=== PATIENT | male | born 1945 | race Caucasian/White ===

== ENCOUNTER 2016-08-13 16:20 | Inpatient (IN) | payer MEDICARE, OTHER ==
[~2016-08-13] VITALS: Ht 190.5 cm; Wt 112.0 kg
[2016-08-13 16:50] VITALS: BP 131/83
[2016-08-13] MEDS ORDERED: DOCUSATE SODIUM 283 MG/5 ML MINI-ENEMA PR PRN (17:15)
[2016-08-13] MEDS ORDERED: ACETAMINOPHEN 325 MG TABLET PO PRN (17:15)
[2016-08-13] MEDS ORDERED: INSULIN ASPART 100 UNITS/ML SQ PRN (17:15)
[2016-08-13] MEDS ORDERED: DEXTROSE 50%-WATER 25 GM/50 ML SYRINGE IVP PRN (17:15)
[2016-08-13] MEDS ORDERED: TEMAZEPAM 15 MG CAPSULE PO PRN (17:15)
[2016-08-13] MEDS ORDERED: OxyCODONE HCL 5 MG IR TABLET PO PRN (17:15)
[2016-08-13 18:30] LABS: APPEARANCE,URINE CLEAR (CLEAR); GLUCOSE, URINE (UA) NEGATIVE (NEGATIVE); KETONES,URINE NEGATIVE (NEGATIVE); LEUKOCYTE ESTERASE ,URINE NEGATIVE (NEGATIVE); OCCULT BLOOD,URINE TRACE (NEGATIVE); PH,URINE 5.5 (5.0-8.0); PROTEIN,URINE SEE CONFIRM (NEGATIVE)
[2016-08-13] MEDS: FERROUS SULFATE 325 MG EC TABLET PO SCH (18:30)
[2016-08-13 18:38] LABS: SQUAMOUS EPITHELIAL CELL,UR Rare /LPF (None Seen); SULFOSALICYLIC ACID,URINE 2+ (Negative); WBC,URINE 0-2 /HPF (0-5)
[2016-08-13 20:32] LABS: GLUCOSE,POINT OF CARE 94 MG/DL (70-110)
[2016-08-13] MEDS: BUDESONIDE/FORMOTEROL FUMARATE 160-4.5 MCG/PUFF 6.9 GM INHALER IH SCH (20:48)
[2016-08-13] MEDS: DOCUSATE SODIUM 100 MG CAPSULE PO SCH (20:48)
[2016-08-13] MEDS: ASCORBIC ACID 500 MG TABLET PO SCH (20:49)
[2016-08-13] MEDS ORDERED: ENOXAPARIN SODIUM 40 MG/0.4 ML PF SYRINGE SQ SCH (21:00)
[2016-08-13] MEDS ORDERED: DIAZEPAM 5 MG TABLET PO SCH (21:00)
[2016-08-13] MEDS ORDERED: SENNA 187 MG TABLET PO SCH (21:00)
[2016-08-13 21:12] LABS: GLUCOSE,POINT OF CARE 101 MG/DL (70-110)
[2016-08-13] MEDS ORDERED: DIAZEPAM 5 MG TABLET PO PRN (23:30)
[2016-08-13] MEDS: ACETAMINOPHEN 325 MG TABLET PO SCH (23:39)
[2016-08-13] MEDS: TraMADol HCL 50 MG TABLET PO SCH (23:39)
[2016-08-14] VITALS: BP 141/77
[2016-08-14] MEDS: ALBUTEROL SULFATE 2.5 MG/0.5 ML NEB SOLUTION NEB PRN ×2 (00:51→16:55)
[2016-08-14] MEDS: IPRATROPIUM BROMIDE 0.5 MG/2.5 ML NEB SOLUTION NEB PRN ×2 (00:51→16:55)
[2016-08-14] MEDS: ACETAMINOPHEN 325 MG TABLET PO SCH ×3 (05:43→17:07)
[2016-08-14 06:52] LABS: EOSINOPHILS % (AUTO) 2.3 % (1.0-6.0); HEMATOCRIT 27.1 % (41-53); HEMOGLOBIN 9.4 g/dL (13.5-17.5); LYMPHOCYTES % (AUTO) 24.8 % (22.0-44.0); MEAN CORPUSCULAR HEMOGLOBIN 29.9 pg (26.0-34.0); MEAN CORPUSCULAR HGB CONC 34.6 G/dL (31.0-37.0); MEAN CORPUSCULAR VOLUME 86 fL (80-100); MONOCYTES # (AUTO) 0.3 K/uL (0.1-1.0); MONOCYTES % (AUTO) 4.2 % (2.0-9.0); NEUTROPHILS # (AUTO) 5.5 K/uL (1.8-7.7); NEUTROPHILS % (AUTO) 68.7 % (40.0-70.0); PLATELET COUNT (AUTO) 176 K/uL (150-450); RED BLOOD CELL COUNT(AUTO) 3.14 MIL/uL (4.50-5.90); RED CELL DISTRIBUTION WIDTH 21.2 % (11.5-14.5); WHITE BLOOD COUNT (AUTO) 8.1 K/uL (4.5-11.0)
[2016-08-14 07:11] LABS: ALBUMIN 2.3 g/dL (3.4-5.0); BILIRUBIN,TOTAL 0.4 mg/dL (0.1-1.0); CALCIUM, TOTAL 8.1 mg/dL (8.8-10.5); CREATININE 1.91 mg/dL (0.60-1.30); POTASSIUM 4.8 mmol/L (3.5-5.1); TOTAL PROTEIN, SERUM 6.8 g/dL (6.4-8.2)
[2016-08-14] MEDS: MetFORMIN HCL 500 MG TABLET PO SCH ×2 (08:17→16:50)
[2016-08-14] MEDS: FERROUS SULFATE 325 MG EC TABLET PO SCH ×2 (08:17→16:50)
[2016-08-14] MEDS: TraMADol HCL 50 MG TABLET PO SCH ×2 (08:17→16:00)
[2016-08-14 08:24] VITALS: BP 138/81
[2016-08-14] MEDS ORDERED: POLYETHYLENE GLYCOL 3350 17 GM PACKET PO SCH (09:00)
[2016-08-14] MEDS ORDERED: RANITIDINE HCL 150 MG TABLET PO SCH (09:00)
[2016-08-14] MEDS ORDERED: MAGNESIUM OXIDE 400 MG TABLET PO SCH (09:00)
[2016-08-14] MEDS ORDERED: TIOTROPIUM BROMIDE 18 MCG/INH HANDIHALER [5] IH SCH (09:00)
[2016-08-14] MEDS ORDERED: AmLODIPine BESYLATE 5 MG TABLET PO SCH (09:00)
[2016-08-14] MEDS ORDERED: METOPROLOL SUCCINATE 50 MG ER TABLET PO SCH (09:00)
[2016-08-14 09:19] LABS: RBC MORPHOLOGY COMMENT ABNORMAL RBC MORPH
[2016-08-14] MEDS: ASCORBIC ACID 500 MG TABLET PO SCH ×2 (09:27→16:50)
[2016-08-14] MEDS: DOCUSATE SODIUM 100 MG CAPSULE PO SCH (09:27)
[2016-08-14] MEDS: BUDESONIDE/FORMOTEROL FUMARATE 160-4.5 MCG/PUFF 6.9 GM INHALER IH SCH (09:28)
[2016-08-14] MEDS: OxyCODONE HCL 5 MG IR TABLET PO PRN ×2 (09:37→13:13)
[2016-08-14 12:37] LABS: GLUCOSE,POINT OF CARE 111 MG/DL (70-110)
[2016-08-14 15:35] VITALS: BP 129/75
[2016-08-14 16:10] VITALS: BP 143/83
[2016-08-14] MEDS ORDERED: FUROSEMIDE 40 MG/4 ML VIAL IVP ONE (16:45)
[2016-08-14 16:50] LABS: ABG A-A DIFF O2 208.2 mmHg (10-20.0); ABG BASE EXCESS -5.7 mmol/L (-2.0-3.0); ABG HCO3 19.5 mmol/L (22.0-26.0); ABG OXYHEMOGLOBIN 81.5 % (94.0-100.0); ABG PCO2 50 mmHg (35-45); ABG PH 7.251 (7.35-7.450); ALLEN TEST, BLOOD GAS Positive; TEMPERATURE, FAHRENHEIT, BG 98.6 FAHREN (96.0-98.6)
[2016-08-14 17:17] LABS: GLUCOSE,POINT OF CARE 125 MG/DL (70-110)
[2016-08-14 17:17] LABS: GLUCOSE,POINT OF CARE 83 MG/DL (70-110)
[2016-08-14] MEDS ORDERED: MethylPREDNISolone SOD SUCC 125 MG/2 ML VIAL IVP SCH (18:30)
[2016-08-14] MEDS ORDERED: IPRATROPIUM BROMIDE 0.5 MG/2.5 ML NEB SOLUTION NEB SCH (19:00)
[2016-08-14] MEDS ORDERED: ALBUTEROL SULFATE 2.5 MG/0.5 ML NEB SOLUTION NEB SCH (19:00)
[2016-08-14] MEDS ORDERED: PIPERACILLIN/TAZO 3.375 GM/D5W 50 ML IV SCH (19:00)
[2016-08-14 19:41] LABS: ABG A-A DIFF O2 203.7 mmHg (10-20.0); ABG BASE EXCESS -6.1 mmol/L (-2.0-3.0); ABG HCO3 19.8 mmol/L (22.0-26.0); ABG PCO2 38 mmHg (35-45); ABG PH 7.332 (7.35-7.450); ALLEN TEST, BLOOD GAS Positive; IPAP, BG 14 cm H2O; TEMPERATURE, FAHRENHEIT, BG 97.8 FAHREN (96.0-98.6)
[2016-08-14] MEDS ORDERED: FUROSEMIDE 40 MG/4 ML VIAL IVP SCH (21:00)
[2016-08-14] MEDS ORDERED: ATORVASTATIN CALCIUM 40 MG TABLET PO SCH (21:00)
[2016-08-18] MEDS ORDERED: ERGOCALCIFEROL (VIT D2) 50,000 UNITS CAPSULE PO SCH (09:00)
[2016-08-21] MEDS ORDERED: IPRNEB IH ×2 (15:02→15:16)
[2016-08-21] MEDS ORDERED: DOCU283E RC (15:13)
== END 2016-08-14 19:18 | disposition short-term general hospital (02) | DRG 552 ==
LOC: 2WR 16:20
PROVIDERS: ADMIT Physical Medicine & Rehabilitation
DX: M48.00 Spinal stenosis, site unspecified (principal); I13.0 Hypertensive heart and chronic kidney disease with heart failure and stage 1 through stage 4 chronic kidney disease, or unspecified chronic kidney disease; I27.2 Other secondary pulmonary hypertension; I48.91 Unspecified atrial fibrillation; J44.9 Chronic obstructive pulmonary disease, unspecified; Z82.49 Family history of ischemic heart disease and other diseases of the circulatory system; Z83.3 Family history of diabetes mellitus; E11.22 Type 2 diabetes mellitus with diabetic chronic kidney disease; N18.9 Chronic kidney disease, unspecified; I50.9 Heart failure, unspecified; M47.9 Spondylosis, unspecified; Z87.01 Personal history of pneumonia (recurrent)
CPT/HCPCS: 82805; 82962; 84145; 87081; 94640; 94660; 94799; 97112; 97163; 97167; 97530; 97535; J1650; J1940; J2543; J2930

== ENCOUNTER 2016-08-14 19:30 | Inpatient (IN) | payer MEDICARE, OTHER ==
[2016-08-14 19:30] VITALS: BP 118/64
[2016-08-15] VITALS (7 sets, daily range): BP systolic 121–137; BP diastolic 63–86
[2016-08-15] MEDS ORDERED: IPRATROPIUM BROMIDE 0.5 MG/2.5 ML NEB SOLUTION NEB PRN (00:30)
[2016-08-15] MEDS ORDERED: ALBUTEROL SULFATE 2.5 MG/0.5 ML NEB SOLUTION NEB PRN (00:30)
[2016-08-15] MEDS ORDERED: DEXTROSE 50%-WATER 25 GM/50 ML SYRINGE IVP PRN ×2 (00:30→14:00)
[2016-08-15] MEDS ORDERED: DOCUSATE SODIUM 283 MG/5 ML MINI-ENEMA PR PRN (00:30)
[2016-08-15] MEDS ORDERED: OxyCODONE HCL 5 MG IR TABLET PO PRN ×2 (00:30)
[2016-08-15] MEDS ORDERED: TEMAZEPAM 15 MG CAPSULE PO PRN (00:30)
[2016-08-15] MEDS ORDERED: DIAZEPAM 5 MG TABLET PO PRN (00:30)
[2016-08-15] MEDS: MethylPREDNISolone SOD SUCC 125 MG/2 ML VIAL IVP SCH ×5 (01:13→23:10)
[2016-08-15] MEDS: PIPERACILLIN/TAZO 3.375 GM/D5W 50 ML IV SCH ×5 (01:14→23:11)
[2016-08-15] MEDS: ACETAMINOPHEN 325 MG TABLET PO SCH ×4 (01:14→18:11)
[2016-08-15 07:12] LABS: GLUCOSE,POINT OF CARE 112 MG/DL (70-110)
[2016-08-15] MEDS: ALBUTEROL SULFATE 2.5 MG/0.5 ML NEB SOLUTION NEB SCH ×5 (07:28→23:00)
[2016-08-15] MEDS: IPRATROPIUM BROMIDE 0.5 MG/2.5 ML NEB SOLUTION NEB SCH ×5 (07:28→23:00)
[2016-08-15] MEDS ORDERED: MetFORMIN HCL 500 MG TABLET PO SCH (08:00)
[2016-08-15] MEDS: TraMADol HCL 50 MG TABLET PO SCH ×3 (08:44→23:08)
[2016-08-15] MEDS: FUROSEMIDE 40 MG/4 ML VIAL IVP SCH ×2 (08:44→22:25)
[2016-08-15] MEDS: DOCUSATE SODIUM 100 MG CAPSULE PO SCH ×2 (08:44→22:24)
[2016-08-15] MEDS: TIOTROPIUM BROMIDE 18 MCG/INH HANDIHALER [5] IH SCH (08:45)
[2016-08-15] MEDS: RANITIDINE HCL 150 MG TABLET PO SCH (08:45)
[2016-08-15] MEDS: POLYETHYLENE GLYCOL 3350 17 GM PACKET PO SCH (08:45)
[2016-08-15] MEDS: FERROUS SULFATE 325 MG EC TABLET PO SCH ×2 (08:45→18:12)
[2016-08-15] MEDS: BUDESONIDE/FORMOTEROL FUMARATE 160-4.5 MCG/PUFF 6.9 GM INHALER IH SCH ×2 (08:45→22:24)
[2016-08-15] MEDS: AmLODIPine BESYLATE 5 MG TABLET PO SCH (08:45)
[2016-08-15] MEDS: MAGNESIUM OXIDE 400 MG TABLET PO SCH (08:45)
[2016-08-15 10:57] LABS: GLUCOSE,POINT OF CARE 102 MG/DL (70-110)
[2016-08-15] MEDS: ASCORBIC ACID 500 MG TABLET PO SCH ×3 (12:19→22:18)
[2016-08-15] MEDS: METOPROLOL SUCCINATE 50 MG ER TABLET PO SCH (12:19)
[2016-08-15 17:06] LABS: CALCIUM, TOTAL 8.4 mg/dL (8.8-10.5); CREATININE 2.56 mg/dL (0.60-1.30); POTASSIUM 5.5 mmol/L (3.5-5.1)
[2016-08-15 17:25] LABS: ABG A-A DIFF O2 156.1 mmHg (10-20.0); ABG BASE EXCESS -8.5 mmol/L (-2.0-3.0); ABG HCO3 18.3 mmol/L (22.0-26.0); ABG OXYHEMOGLOBIN 92.4 % (94.0-100.0); ABG PCO2 28 mmHg (35-45); ABG PH 7.384 (7.35-7.450); ALLEN TEST, BLOOD GAS Positive; TEMPERATURE, FAHRENHEIT, BG 98.6 FAHREN (96.0-98.6)
[2016-08-15 17:42] LABS: GLUCOSE,POINT OF CARE 234 MG/DL (70-110)
[2016-08-15 18:14] LABS: PROCALCITONIN (PCT) 8.12 ng/mL (<0.50)
[2016-08-15] MEDS: INSULIN ASPART 100 UNITS/ML SQ PRN ×2 (18:18→22:23)
[2016-08-15 19:47] LABS: GLUCOSE,POINT OF CARE 288 MG/DL (70-110)
[2016-08-15 20:08] LABS: EOSINOPHILS % (AUTO) 0 % (1.0-6.0); HEMATOCRIT 28.6 % (41-53); HEMOGLOBIN 9.8 g/dL (13.5-17.5); LYMPHOCYTES # (AUTO) 0.9 K/uL (1.0-4.8); LYMPHOCYTES % (AUTO) 8.9 % (22.0-44.0); MEAN CORPUSCULAR HEMOGLOBIN 29.6 pg (26.0-34.0); MEAN CORPUSCULAR HGB CONC 34.2 G/dL (31.0-37.0); MEAN CORPUSCULAR VOLUME 87 fL (80-100); MONOCYTES # (AUTO) 0.3 K/uL (0.1-1.0); MONOCYTES % (AUTO) 2.6 % (2.0-9.0); PLATELET COUNT (AUTO) 241 K/uL (150-450); RED BLOOD CELL COUNT(AUTO) 3.31 MIL/uL (4.50-5.90); RED CELL DISTRIBUTION WIDTH 21.2 % (11.5-14.5); WHITE BLOOD COUNT (AUTO) 10.1 K/uL (4.5-11.0)
[2016-08-15 20:17] LABS: NEUTROPHILS % (AUTO) 88.5 % (40.0-70.0)
[2016-08-15 20:38] LABS: RBC MORPHOLOGY COMMENT ABNORMAL RBC MORPH
[2016-08-15] MEDS: ENOXAPARIN SODIUM 40 MG/0.4 ML PF SYRINGE SQ SCH (22:24)
[2016-08-15] MEDS: SENNA 187 MG TABLET PO SCH (22:24)
[2016-08-15] MEDS: DIAZEPAM 5 MG TABLET PO SCH (22:24)
[2016-08-15] MEDS: ATORVASTATIN CALCIUM 40 MG TABLET PO SCH (22:37)
[2016-08-16] MEDS: ACETAMINOPHEN 325 MG TABLET PO SCH ×4 (01:22→18:46)
[2016-08-16 03:36] LABS: GLUCOSE COMMENT 1 Received Meds; GLUCOSE,POINT OF CARE 252 MG/DL (70-110)
[2016-08-16 05:05] VITALS: BP 134/76
[2016-08-16 06:14] VITALS: BP 115/78
[2016-08-16] MEDS: INSULIN ASPART 100 UNITS/ML SQ PRN ×4 (06:25→20:37)
[2016-08-16] MEDS: PIPERACILLIN/TAZO 3.375 GM/D5W 50 ML IV SCH (06:28)
[2016-08-16] MEDS: MethylPREDNISolone SOD SUCC 125 MG/2 ML VIAL IVP SCH ×3 (06:28→17:18)
[2016-08-16 06:56] LABS: GLUCOSE COMMENT 1 Received Meds; GLUCOSE,POINT OF CARE 174 MG/DL (70-110)
[2016-08-16] MEDS: ALBUTEROL SULFATE 2.5 MG/0.5 ML NEB SOLUTION NEB SCH ×5 (07:00→22:54)
[2016-08-16] MEDS: IPRATROPIUM BROMIDE 0.5 MG/2.5 ML NEB SOLUTION NEB SCH ×5 (07:00→22:54)
[2016-08-16 07:36] VITALS: BP 123/73
[2016-08-16] MEDS: FERROUS SULFATE 325 MG EC TABLET PO SCH ×2 (08:24→17:49)
[2016-08-16] MEDS: TraMADol HCL 50 MG TABLET PO SCH ×2 (08:27→16:32)
[2016-08-16] MEDS: TIOTROPIUM BROMIDE 18 MCG/INH HANDIHALER [5] IH SCH (08:27)
[2016-08-16] MEDS: BUDESONIDE/FORMOTEROL FUMARATE 160-4.5 MCG/PUFF 6.9 GM INHALER IH SCH ×2 (08:27→20:12)
[2016-08-16] MEDS: FUROSEMIDE 40 MG/4 ML VIAL IVP SCH ×2 (08:27→20:11)
[2016-08-16] MEDS: ASCORBIC ACID 500 MG TABLET PO SCH ×3 (08:28→20:12)
[2016-08-16] MEDS: POLYETHYLENE GLYCOL 3350 17 GM PACKET PO SCH (08:28)
[2016-08-16] MEDS: RANITIDINE HCL 150 MG TABLET PO SCH (08:28)
[2016-08-16] MEDS: MAGNESIUM OXIDE 400 MG TABLET PO SCH (08:28)
[2016-08-16] MEDS: AmLODIPine BESYLATE 5 MG TABLET PO SCH (08:28)
[2016-08-16] MEDS: DOCUSATE SODIUM 100 MG CAPSULE PO SCH ×2 (08:28→20:12)
[2016-08-16] MEDS: METOPROLOL SUCCINATE 50 MG ER TABLET PO SCH (08:28)
[2016-08-16 09:13] LABS: BASOPHILS # (AUTO) 0.01 K/uL (0.00-0.20); BASOPHILS % (AUTO) 0.2 % (0.0-2.0); EOSINOPHILS % (AUTO) 0.03 % (1.0-6.0); HEMATOCRIT 27.4 % (41-53); HEMOGLOBIN 8.9 g/dL (13.5-17.5); LYMPHOCYTES # (AUTO) 0.9 K/uL (1.0-4.8); LYMPHOCYTES % (AUTO) 9.9 % (22.0-44.0); MEAN CORPUSCULAR HEMOGLOBIN 28.8 pg (26.0-34.0); MEAN CORPUSCULAR HGB CONC 32.5 G/dL (31.0-37.0); MEAN CORPUSCULAR VOLUME 88 fL (80-100); MONOCYTES # (AUTO) 0.5 K/uL (0.1-1.0); MONOCYTES % (AUTO) 5.3 % (2.0-9.0); NEUTROPHILS # (AUTO) 7.8 K/uL (1.8-7.7); NEUTROPHILS % (AUTO) 84.7 % (40.0-70.0); PLATELET COUNT (AUTO) 258 K/uL (150-450); RED CELL DISTRIBUTION WIDTH 21.2 % (11.5-14.5); WHITE BLOOD COUNT (AUTO) 9.2 K/uL (4.5-11.0)
[2016-08-16 09:28] LABS: CALCIUM, TOTAL 8.7 mg/dL (8.8-10.5); CREATININE 2.75 mg/dL (0.60-1.30); POTASSIUM 4.9 mmol/L (3.5-5.1)
[2016-08-16 09:32] LABS: ALBUMIN 2.2 g/dL (3.4-5.0); BILIRUBIN,TOTAL 0.5 mg/dL (0.1-1.0); TOTAL PROTEIN, SERUM 7.6 g/dL (6.4-8.2)
[2016-08-16 09:37] LABS: RBC MORPHOLOGY COMMENT ABNORMAL RBC MORPH
[2016-08-16 11:42] VITALS: BP 140/79
[2016-08-16] MEDS: PIPERACILLIN SODIUM/TAZOBACTAM 2.25 GM in DEXTROSE 5%-WATER 50 ML IV SCH ×2 (11:52→17:17)
[2016-08-16 12:12] LABS: GLUCOSE COMMENT 1 Received Meds; GLUCOSE,POINT OF CARE 234 MG/DL (70-110)
[2016-08-16 16:15] VITALS: BP 138/81
[2016-08-16 19:21] LABS: GLUCOSE COMMENT 1 Received Meds; GLUCOSE,POINT OF CARE 220 MG/DL (70-110)
[2016-08-16 20:05] VITALS: BP 149/90
[2016-08-16] MEDS: ENOXAPARIN SODIUM 40 MG/0.4 ML PF SYRINGE SQ SCH (20:11)
[2016-08-16] MEDS: SENNA 187 MG TABLET PO SCH (20:12)
[2016-08-16] MEDS: ATORVASTATIN CALCIUM 40 MG TABLET PO SCH (20:12)
[2016-08-16] MEDS: DIAZEPAM 5 MG TABLET PO SCH (20:12)
[2016-08-17 00:05] VITALS: BP 150/78
[2016-08-17] MEDS ORDERED: SODIUM CHLORIDE 0.9% 100 ML ONE ×2 (00:07→11:54)
[2016-08-17] MEDS: PIPERACILLIN SODIUM/TAZOBACTAM 2.25 GM in DEXTROSE 5%-WATER 50 ML IV SCH ×4 (00:36→17:36)
[2016-08-17] MEDS: MethylPREDNISolone SOD SUCC 125 MG/2 ML VIAL IVP SCH ×4 (00:36→17:36)
[2016-08-17] MEDS: TraMADol HCL 50 MG TABLET PO SCH ×3 (00:36→17:02)
[2016-08-17 02:22] LABS: GLUCOSE COMMENT 1 Received Meds; GLUCOSE,POINT OF CARE 194 MG/DL (70-110)
[2016-08-17 04:26] VITALS: BP 133/94
[2016-08-17] MEDS: ACETAMINOPHEN 325 MG TABLET PO SCH ×4 (06:04→18:03)
[2016-08-17 06:26] LABS: BASOPHILS % (AUTO) 0.1 % (0.0-2.0); EOSINOPHILS % (AUTO) 0 % (1.0-6.0); HEMATOCRIT 26.3 % (41-53); HEMOGLOBIN 8.9 g/dL (13.5-17.5); LYMPHOCYTES # (AUTO) 0.6 K/uL (1.0-4.8); LYMPHOCYTES % (AUTO) 8.1 % (22.0-44.0); MEAN CORPUSCULAR HEMOGLOBIN 29.8 pg (26.0-34.0); MEAN CORPUSCULAR HGB CONC 33.7 G/dL (31.0-37.0); MEAN CORPUSCULAR VOLUME 88 fL (80-100); MONOCYTES # (AUTO) 0.4 K/uL (0.1-1.0); MONOCYTES % (AUTO) 5.7 % (2.0-9.0); NEUTROPHILS # (AUTO) 6.5 K/uL (1.8-7.7); PLATELET COUNT (AUTO) 254 K/uL (150-450); RED BLOOD CELL COUNT(AUTO) 2.98 MIL/uL (4.50-5.90); RED CELL DISTRIBUTION WIDTH 21.4 % (11.5-14.5); WHITE BLOOD COUNT (AUTO) 7.6 K/uL (4.5-11.0)
[2016-08-17 06:43] LABS: ALBUMIN 2.2 g/dL (3.4-5.0); BILIRUBIN,TOTAL 0.4 mg/dL (0.1-1.0); CALCIUM, TOTAL 8.5 mg/dL (8.8-10.5); CREATININE 2.61 mg/dL (0.60-1.30); POTASSIUM 3.9 mmol/L (3.5-5.1); TOTAL PROTEIN, SERUM 7.4 g/dL (6.4-8.2)
[2016-08-17 06:49] LABS: NEUTROPHILS % (AUTO) 86.1 % (40.0-70.0)
[2016-08-17] MEDS: INSULIN ASPART 100 UNITS/ML SQ PRN ×4 (06:52→20:42)
[2016-08-17] MEDS: IPRATROPIUM BROMIDE 0.5 MG/2.5 ML NEB SOLUTION NEB SCH ×5 (07:00→22:53)
[2016-08-17] MEDS: ALBUTEROL SULFATE 2.5 MG/0.5 ML NEB SOLUTION NEB SCH ×5 (07:00→22:53)
[2016-08-17 07:19] VITALS: BP 143/70
[2016-08-17] MEDS: FUROSEMIDE 40 MG/4 ML VIAL IVP SCH ×2 (08:21→20:27)
[2016-08-17] MEDS: RANITIDINE HCL 150 MG TABLET PO SCH (08:22)
[2016-08-17] MEDS: TIOTROPIUM BROMIDE 18 MCG/INH HANDIHALER [5] IH SCH (08:22)
[2016-08-17] MEDS: POLYETHYLENE GLYCOL 3350 17 GM PACKET PO SCH (08:22)
[2016-08-17] MEDS: DOCUSATE SODIUM 100 MG CAPSULE PO SCH ×2 (08:22→20:27)
[2016-08-17] MEDS: MAGNESIUM OXIDE 400 MG TABLET PO SCH (08:22)
[2016-08-17] MEDS: ASCORBIC ACID 500 MG TABLET PO SCH ×3 (08:22→20:27)
[2016-08-17] MEDS: METOPROLOL SUCCINATE 50 MG ER TABLET PO SCH (08:22)
[2016-08-17] MEDS: FERROUS SULFATE 325 MG EC TABLET PO SCH ×2 (08:22→17:37)
[2016-08-17] MEDS: AmLODIPine BESYLATE 5 MG TABLET PO SCH (08:22)
[2016-08-17] MEDS: BUDESONIDE/FORMOTEROL FUMARATE 160-4.5 MCG/PUFF 6.9 GM INHALER IH SCH ×2 (08:23→20:28)
[2016-08-17 11:03] VITALS: BP 142/79
[2016-08-17] MEDS ORDERED: POTASSIUM CHLORIDE 20 MEQ ER TABLET PO ONE (12:15)
[2016-08-17 12:37] LABS: MAGNESIUM 2.4 mg/dL (1.80-2.40); PHOSPHORUS 4.4 mg/dL (2.5-4.9)
[2016-08-17 15:17] VITALS: BP 123/75
[2016-08-17 19:53] VITALS: BP 132/79
[2016-08-17 20:01] LABS: GLUCOSE,POINT OF CARE 285 MG/DL (70-110)
[2016-08-17] MEDS: DIAZEPAM 5 MG TABLET PO SCH (20:27)
[2016-08-17] MEDS: SENNA 187 MG TABLET PO SCH (20:27)
[2016-08-17] MEDS: ENOXAPARIN SODIUM 40 MG/0.4 ML PF SYRINGE SQ SCH (20:27)
[2016-08-17] MEDS: ATORVASTATIN CALCIUM 40 MG TABLET PO SCH (20:27)
[2016-08-18] VITALS: BP 155/63
[2016-08-18] MEDS ORDERED: SODIUM CHLORIDE 0.9% 100 ML ONE ×2 (00:01→09:58)
[2016-08-18] MEDS: PIPERACILLIN SODIUM/TAZOBACTAM 2.25 GM in DEXTROSE 5%-WATER 50 ML IV SCH ×4 (00:17→17:29)
[2016-08-18] MEDS: TraMADol HCL 50 MG TABLET PO SCH ×3 (00:18→17:28)
[2016-08-18] MEDS: MethylPREDNISolone SOD SUCC 125 MG/2 ML VIAL IVP SCH ×3 (00:18→11:52)
[2016-08-18 04:00] VITALS: BP 123/70
[2016-08-18] MEDS: ACETAMINOPHEN 325 MG TABLET PO SCH ×4 (06:06→17:29)
[2016-08-18] MEDS: INSULIN ASPART 100 UNITS/ML SQ PRN ×4 (06:19→21:10)
[2016-08-18 06:31] LABS: EOSINOPHILS % (AUTO) 0 % (1.0-6.0); HEMATOCRIT 25.6 % (41-53); LYMPHOCYTES # (AUTO) 0.6 K/uL (1.0-4.8); LYMPHOCYTES % (AUTO) 9.1 % (22.0-44.0); MEAN CORPUSCULAR HEMOGLOBIN 29.7 pg (26.0-34.0); MEAN CORPUSCULAR VOLUME 85 fL (80-100); MONOCYTES # (AUTO) 0.4 K/uL (0.1-1.0); NEUTROPHILS # (AUTO) 5.7 K/uL (1.8-7.7); NEUTROPHILS % (AUTO) 84.9 % (40.0-70.0); PLATELET COUNT (AUTO) 289 K/uL (150-450); RED BLOOD CELL COUNT(AUTO) 3.02 MIL/uL (4.50-5.90); RED CELL DISTRIBUTION WIDTH 20.7 % (11.5-14.5); WHITE BLOOD COUNT (AUTO) 6.7 K/uL (4.5-11.0)
[2016-08-18 06:51] LABS: RBC MORPHOLOGY COMMENT ABNORMAL RBC MORPH
[2016-08-18 07:00] VITALS: BP 142/69
[2016-08-18 07:01] LABS: ALBUMIN 2.3 g/dL (3.4-5.0); BILIRUBIN,TOTAL 0.3 mg/dL (0.1-1.0); CALCIUM, TOTAL 8.5 mg/dL (8.8-10.5); CREATININE 2.34 mg/dL (0.60-1.30); POTASSIUM 3.7 mmol/L (3.5-5.1); TOTAL PROTEIN, SERUM 7.6 g/dL (6.4-8.2)
[2016-08-18] MEDS: IPRATROPIUM BROMIDE 0.5 MG/2.5 ML NEB SOLUTION NEB SCH ×5 (07:53→23:00)
[2016-08-18] MEDS: ALBUTEROL SULFATE 2.5 MG/0.5 ML NEB SOLUTION NEB SCH ×5 (07:53→23:00)
[2016-08-18] MEDS: DOCUSATE SODIUM 100 MG CAPSULE PO SCH ×2 (09:00→20:29)
[2016-08-18] MEDS ORDERED: ERGOCALCIFEROL (VIT D2) 50,000 UNITS CAPSULE PO SCH (09:00)
[2016-08-18] MEDS: POLYETHYLENE GLYCOL 3350 17 GM PACKET PO SCH (09:00)
[2016-08-18] MEDS: METOPROLOL SUCCINATE 50 MG ER TABLET PO SCH (09:45)
[2016-08-18] MEDS: MAGNESIUM OXIDE 400 MG TABLET PO SCH (09:46)
[2016-08-18] MEDS: AmLODIPine BESYLATE 5 MG TABLET PO SCH (09:46)
[2016-08-18] MEDS: TIOTROPIUM BROMIDE 18 MCG/INH HANDIHALER [5] IH SCH (09:54)
[2016-08-18] MEDS: BUDESONIDE/FORMOTEROL FUMARATE 160-4.5 MCG/PUFF 6.9 GM INHALER IH SCH ×2 (09:54→20:50)
[2016-08-18] MEDS: FERROUS SULFATE 325 MG EC TABLET PO SCH ×2 (09:54→17:29)
[2016-08-18] MEDS: FUROSEMIDE 40 MG/4 ML VIAL IVP SCH ×2 (09:55→20:50)
[2016-08-18] MEDS: RANITIDINE HCL 150 MG TABLET PO SCH (09:55)
[2016-08-18] MEDS: ASCORBIC ACID 500 MG TABLET PO SCH ×3 (09:55→20:49)
[2016-08-18 11:32] VITALS: BP 146/90
[2016-08-18 11:47] LABS: GLUCOSE COMMENT 1 Received Meds; GLUCOSE,POINT OF CARE 224 MG/DL (70-110)
[2016-08-18 11:47] LABS: GLUCOSE COMMENT 1 Received Meds; GLUCOSE,POINT OF CARE 255 MG/DL (70-110)
[2016-08-18 11:52] LABS: GLUCOSE COMMENT 1 Received Meds; GLUCOSE,POINT OF CARE 319 MG/DL (70-110)
[2016-08-18 15:00] VITALS: BP 132/88
[2016-08-18 15:16] LABS: GLUCOSE COMMENT 1 Received Meds; GLUCOSE,POINT OF CARE 288 MG/DL (70-110)
[2016-08-18 15:22] LABS: GLUCOSE COMMENT 1 Received Meds; GLUCOSE,POINT OF CARE 306 MG/DL (70-110)
[2016-08-18] MEDS: MethylPREDNISolone SOD SUCC 40 MG/ML VIAL IVP SCH (17:29)
[2016-08-18] MEDS ORDERED: 0.9% SODIUM CHLORIDE 5 ML NEB SOLUTION NEB ONE (19:11)
[2016-08-18 19:49] VITALS: BP 153/89
[2016-08-18] MEDS: SENNA 187 MG TABLET PO SCH (20:29)
[2016-08-18 20:42] LABS: GLUCOSE COMMENT 1 Received Meds; GLUCOSE,POINT OF CARE 343 MG/DL (70-110)
[2016-08-18] MEDS: ATORVASTATIN CALCIUM 40 MG TABLET PO SCH (20:49)
[2016-08-18] MEDS: DIAZEPAM 5 MG TABLET PO SCH (20:50)
[2016-08-18] MEDS: ENOXAPARIN SODIUM 40 MG/0.4 ML PF SYRINGE SQ SCH (20:50)
[2016-08-18 23:47] LABS: GLUCOSE COMMENT 1 Received Meds; GLUCOSE,POINT OF CARE 325 MG/DL (70-110)
[2016-08-19 00:07] VITALS: BP 143/81
[2016-08-19] MEDS: MethylPREDNISolone SOD SUCC 40 MG/ML VIAL IVP SCH ×3 (00:10→11:59)
[2016-08-19] MEDS: PIPERACILLIN SODIUM/TAZOBACTAM 2.25 GM in DEXTROSE 5%-WATER 50 ML IV SCH ×4 (00:11→18:01)
[2016-08-19] MEDS: TraMADol HCL 50 MG TABLET PO SCH ×3 (00:11→16:00)
[2016-08-19 04:07] VITALS: BP 153/92
[2016-08-19] MEDS: ACETAMINOPHEN 325 MG TABLET PO SCH ×4 (06:00→18:01)
[2016-08-19 06:13] LABS: COCCIDIOIDES IMMITIS AB IGG <0.150 Abs; COCCIDIOIDES IMMITIS AB IGM <0.150 Abs
[2016-08-19] MEDS: INSULIN ASPART 100 UNITS/ML SQ PRN ×4 (06:16→22:07)
[2016-08-19 06:19] LABS: BASOPHILS # (AUTO) 0.02 K/uL (0.00-0.20); BASOPHILS % (AUTO) 0.2 % (0.0-2.0); EOSINOPHILS % (AUTO) 0.01 % (1.0-6.0); HEMATOCRIT 26.8 % (41-53); HEMOGLOBIN 9.1 g/dL (13.5-17.5); LYMPHOCYTES # (AUTO) 0.7 K/uL (1.0-4.8); LYMPHOCYTES % (AUTO) 10.9 % (22.0-44.0); MEAN CORPUSCULAR HEMOGLOBIN 28.9 pg (26.0-34.0); MEAN CORPUSCULAR VOLUME 85 fL (80-100); MONOCYTES # (AUTO) 0.4 K/uL (0.1-1.0); MONOCYTES % (AUTO) 5.8 % (2.0-9.0); NEUTROPHILS # (AUTO) 5.6 K/uL (1.8-7.7); NEUTROPHILS % (AUTO) 83.2 % (40.0-70.0); PLATELET COUNT (AUTO) 298 K/uL (150-450); RED BLOOD CELL COUNT(AUTO) 3.16 MIL/uL (4.50-5.90); RED CELL DISTRIBUTION WIDTH 21.2 % (11.5-14.5); WHITE BLOOD COUNT (AUTO) 6.7 K/uL (4.5-11.0)
[2016-08-19 06:31] LABS: ALBUMIN 2.3 g/dL (3.4-5.0); BILIRUBIN,TOTAL 0.3 mg/dL (0.1-1.0); CALCIUM, TOTAL 8.3 mg/dL (8.8-10.5); CREATININE 2.14 mg/dL (0.60-1.30); POTASSIUM 3.6 mmol/L (3.5-5.1); TOTAL PROTEIN, SERUM 7.2 g/dL (6.4-8.2)
[2016-08-19] MEDS: IPRATROPIUM BROMIDE 0.5 MG/2.5 ML NEB SOLUTION NEB SCH ×5 (07:09→23:00)
[2016-08-19] MEDS: ALBUTEROL SULFATE 2.5 MG/0.5 ML NEB SOLUTION NEB SCH ×3 (07:09→15:00)
[2016-08-19 07:43] VITALS: BP 154/82
[2016-08-19] MEDS: FERROUS SULFATE 325 MG EC TABLET PO SCH ×2 (08:50→18:05)
[2016-08-19] MEDS: BUDESONIDE/FORMOTEROL FUMARATE 160-4.5 MCG/PUFF 6.9 GM INHALER IH SCH ×2 (08:52→21:59)
[2016-08-19] MEDS: TIOTROPIUM BROMIDE 18 MCG/INH HANDIHALER [5] IH SCH (08:52)
[2016-08-19] MEDS: MAGNESIUM OXIDE 400 MG TABLET PO SCH (08:53)
[2016-08-19] MEDS: FUROSEMIDE 40 MG/4 ML VIAL IVP SCH ×2 (08:53→21:59)
[2016-08-19] MEDS: DOCUSATE SODIUM 100 MG CAPSULE PO SCH ×2 (08:54→21:00)
[2016-08-19] MEDS: RANITIDINE HCL 150 MG TABLET PO SCH (08:54)
[2016-08-19] MEDS: AmLODIPine BESYLATE 5 MG TABLET PO SCH (08:54)
[2016-08-19] MEDS: METOPROLOL SUCCINATE 50 MG ER TABLET PO SCH (08:54)
[2016-08-19] MEDS: ASCORBIC ACID 500 MG TABLET PO SCH ×3 (08:54→21:58)
[2016-08-19] MEDS: POLYETHYLENE GLYCOL 3350 17 GM PACKET PO SCH (08:54)
[2016-08-19 09:05] LABS: RBC MORPHOLOGY COMMENT ABNORMAL RBC MORPH
[2016-08-19 10:13] LABS: MAGNESIUM 2.5 mg/dL (1.80-2.40)
[2016-08-19 10:57] LABS: GLUCOSE COMMENT 1 Received Meds; GLUCOSE,POINT OF CARE 266 MG/DL (70-110)
[2016-08-19 11:07] VITALS: BP 141/86
[2016-08-19 14:32] LABS: ORGANISM ID Not indicated.
[2016-08-19 15:24] VITALS: BP 141/90
[2016-08-19] MEDS ORDERED: LEVALBUTEROL HCL 0.63 MG/3 ML NEB SOLUTION NEB PRN (17:45)
[2016-08-19] MEDS ORDERED: SODIUM CHLORIDE 0.9% 100 ML ONE (17:50)
[2016-08-19] MEDS: PredniSONE 20 MG TABLET PO SCH (18:01)
[2016-08-19 20:27] VITALS: BP 148/96
[2016-08-19] MEDS: SENNA 187 MG TABLET PO SCH (21:00)
[2016-08-19] MEDS: ATORVASTATIN CALCIUM 40 MG TABLET PO SCH (21:58)
[2016-08-19] MEDS: DIAZEPAM 5 MG TABLET PO SCH (21:58)
[2016-08-19] MEDS: AMIODARONE HCL 200 MG TABLET PO SCH (21:58)
[2016-08-19] MEDS: ENOXAPARIN SODIUM 40 MG/0.4 ML PF SYRINGE SQ SCH (21:58)
[2016-08-20] VITALS (7 sets, daily range): BP systolic 126–146; BP diastolic 70–86
[2016-08-20] MEDS: PIPERACILLIN SODIUM/TAZOBACTAM 2.25 GM in DEXTROSE 5%-WATER 50 ML IV SCH ×2 (01:13→06:23)
[2016-08-20] MEDS: ACETAMINOPHEN 325 MG TABLET PO SCH ×4 (06:23→17:40)
[2016-08-20] MEDS: INSULIN ASPART 100 UNITS/ML SQ PRN ×4 (06:24→20:47)
[2016-08-20 06:47] LABS: GLUCOSE COMMENT 1 Received Meds; GLUCOSE,POINT OF CARE 307 MG/DL (70-110)
[2016-08-20 06:47] LABS: GLUCOSE COMMENT 1 Received Meds; GLUCOSE,POINT OF CARE 277 MG/DL (70-110)
[2016-08-20 07:32] LABS: BASOPHILS % (AUTO) 0.2 % (0.0-2.0); EOSINOPHILS % (AUTO) 0 % (1.0-6.0); HEMOGLOBIN 9.3 g/dL (13.5-17.5); LYMPHOCYTES # (AUTO) 1.2 K/uL (1.0-4.8); LYMPHOCYTES % (AUTO) 11.7 % (22.0-44.0); MEAN CORPUSCULAR HEMOGLOBIN 29.6 pg (26.0-34.0); MEAN CORPUSCULAR HGB CONC 34.5 G/dL (31.0-37.0); MEAN CORPUSCULAR VOLUME 86 fL (80-100); MONOCYTES # (AUTO) 0.7 K/uL (0.1-1.0); MONOCYTES % (AUTO) 6.6 % (2.0-9.0); NEUTROPHILS # (AUTO) 8.1 K/uL (1.8-7.7); NEUTROPHILS % (AUTO) 81.5 % (40.0-70.0); PLATELET COUNT (AUTO) 340 K/uL (150-450); RED BLOOD CELL COUNT(AUTO) 3.15 MIL/uL (4.50-5.90); RED CELL DISTRIBUTION WIDTH 20.4 % (11.5-14.5)
[2016-08-20] MEDS: IPRATROPIUM BROMIDE 0.5 MG/2.5 ML NEB SOLUTION NEB SCH ×5 (07:55→22:50)
[2016-08-20 08:07] LABS: GLUCOSE COMMENT 1 Received Meds; GLUCOSE,POINT OF CARE 255 MG/DL (70-110)
[2016-08-20 08:09] LABS: ALBUMIN 2.2 g/dL (3.4-5.0); CALCIUM, TOTAL 8.1 mg/dL (8.8-10.5); CREATININE 1.76 mg/dL (0.60-1.30); MAGNESIUM 2.1 mg/dL (1.80-2.40); POTASSIUM 3.6 mmol/L (3.5-5.1); TOTAL PROTEIN, SERUM 6.9 g/dL (6.4-8.2)
[2016-08-20 08:17] LABS: GLUCOSE COMMENT 1 Received Meds; GLUCOSE,POINT OF CARE 221 MG/DL (70-110)
[2016-08-20 08:22] LABS: BILIRUBIN,TOTAL 0.3 mg/dL (0.1-1.0)
[2016-08-20] MEDS ORDERED: POTASSIUM CHLORIDE 10% 40 MEQ/30 ML LIQUID UDCUP PO ONE (08:45)
[2016-08-20] MEDS: BUDESONIDE/FORMOTEROL FUMARATE 160-4.5 MCG/PUFF 6.9 GM INHALER IH SCH ×2 (08:56→20:43)
[2016-08-20] MEDS: FUROSEMIDE 40 MG/4 ML VIAL IVP SCH ×2 (08:57→20:44)
[2016-08-20] MEDS: ASCORBIC ACID 500 MG TABLET PO SCH ×3 (08:57→20:44)
[2016-08-20] MEDS: AmLODIPine BESYLATE 5 MG TABLET PO SCH (08:57)
[2016-08-20] MEDS: FERROUS SULFATE 325 MG EC TABLET PO SCH ×2 (08:57→17:40)
[2016-08-20] MEDS: TraMADol HCL 50 MG TABLET PO SCH ×3 (08:57→15:49)
[2016-08-20] MEDS: AMIODARONE HCL 200 MG TABLET PO SCH ×3 (08:57→20:44)
[2016-08-20] MEDS: PredniSONE 20 MG TABLET PO SCH (08:57)
[2016-08-20] MEDS: POLYETHYLENE GLYCOL 3350 17 GM PACKET PO SCH (08:58)
[2016-08-20] MEDS: RANITIDINE HCL 150 MG TABLET PO SCH (08:58)
[2016-08-20] MEDS: TIOTROPIUM BROMIDE 18 MCG/INH HANDIHALER [5] IH SCH (08:58)
[2016-08-20] MEDS: DOCUSATE SODIUM 100 MG CAPSULE PO SCH ×2 (09:11→20:45)
[2016-08-20] MEDS: METOPROLOL SUCCINATE 50 MG ER TABLET PO SCH (09:11)
[2016-08-20 09:28] LABS: RBC MORPHOLOGY COMMENT ABNORMAL RBC MORPH
[2016-08-20] MEDS: PIPERACILLIN/TAZO 3.375 GM/D5W 50 ML IV SCH ×2 (12:10→17:40)
[2016-08-20 12:38] LABS: GLUCOSE COMMENT 1 Received Meds; GLUCOSE,POINT OF CARE 294 MG/DL (70-110)
[2016-08-20] MEDS ORDERED: SODIUM CHLORIDE 0.9% 100 ML ONE (20:40)
[2016-08-20] MEDS: DIAZEPAM 5 MG TABLET PO SCH (20:44)
[2016-08-20] MEDS: ATORVASTATIN CALCIUM 40 MG TABLET PO SCH (20:44)
[2016-08-20] MEDS: SENNA 187 MG TABLET PO SCH (20:44)
[2016-08-20] MEDS: ENOXAPARIN SODIUM 40 MG/0.4 ML PF SYRINGE SQ SCH (20:45)
[2016-08-21] MEDS: PIPERACILLIN/TAZO 3.375 GM/D5W 50 ML IV SCH ×3 (01:23→11:22)
[2016-08-21] MEDS: ACETAMINOPHEN 325 MG TABLET PO SCH ×3 (01:23→11:27)
[2016-08-21] MEDS: TraMADol HCL 50 MG TABLET PO SCH ×2 (01:23→08:05)
[2016-08-21 04:39] VITALS: BP 138/91
[2016-08-21 06:44] LABS: BASOPHILS # (AUTO) 0.02 K/uL (0.00-0.20); BASOPHILS % (AUTO) 0.2 % (0.0-2.0); EOSINOPHILS # (AUTO) 0.01 K/uL (0.00-0.70); EOSINOPHILS % (AUTO) 0.04 % (1.0-6.0); HEMATOCRIT 30.8 % (41-53); HEMOGLOBIN 10.3 g/dL (13.5-17.5); LYMPHOCYTES # (AUTO) 1.9 K/uL (1.0-4.8); MEAN CORPUSCULAR HEMOGLOBIN 28.9 pg (26.0-34.0); MEAN CORPUSCULAR HGB CONC 33.3 G/dL (31.0-37.0); MEAN CORPUSCULAR VOLUME 87 fL (80-100); MONOCYTES # (AUTO) 0.7 K/uL (0.1-1.0); MONOCYTES % (AUTO) 5.1 % (2.0-9.0); NEUTROPHILS % (AUTO) 80.8 % (40.0-70.0); PLATELET COUNT (AUTO) 396 K/uL (150-450); RED BLOOD CELL COUNT(AUTO) 3.55 MIL/uL (4.50-5.90); RED CELL DISTRIBUTION WIDTH 21.7 % (11.5-14.5); WHITE BLOOD COUNT (AUTO) 13.6 K/uL (4.5-11.0)
[2016-08-21 07:00] VITALS: BP 131/91
[2016-08-21 07:15] LABS: ALBUMIN 2.2 g/dL (3.4-5.0); BILIRUBIN,TOTAL 0.3 mg/dL (0.1-1.0); CALCIUM, TOTAL 8.5 mg/dL (8.8-10.5); CREATININE 1.74 mg/dL (0.60-1.30); MAGNESIUM 1.8 mg/dL (1.80-2.40); POTASSIUM 3.4 mmol/L (3.5-5.1); TOTAL PROTEIN, SERUM 6.8 g/dL (6.4-8.2)
[2016-08-21] MEDS ORDERED: POTASSIUM CHLORIDE 10% 40 MEQ/30 ML LIQUID UDCUP PO ONE (08:00)
[2016-08-21] MEDS: BUDESONIDE/FORMOTEROL FUMARATE 160-4.5 MCG/PUFF 6.9 GM INHALER IH SCH (08:00)
[2016-08-21] MEDS: TIOTROPIUM BROMIDE 18 MCG/INH HANDIHALER [5] IH SCH (08:00)
[2016-08-21] MEDS: DOCUSATE SODIUM 100 MG CAPSULE PO SCH (08:04)
[2016-08-21] MEDS: METOPROLOL SUCCINATE 50 MG ER TABLET PO SCH (08:04)
[2016-08-21] MEDS: POLYETHYLENE GLYCOL 3350 17 GM PACKET PO SCH (08:04)
[2016-08-21] MEDS: AmLODIPine BESYLATE 5 MG TABLET PO SCH (08:05)
[2016-08-21] MEDS: ASCORBIC ACID 500 MG TABLET PO SCH (08:05)
[2016-08-21] MEDS: FERROUS SULFATE 325 MG EC TABLET PO SCH (08:05)
[2016-08-21] MEDS: PredniSONE 20 MG TABLET PO SCH (08:07)
[2016-08-21] MEDS: RANITIDINE HCL 150 MG TABLET PO SCH (08:08)
[2016-08-21] MEDS: IPRATROPIUM BROMIDE 0.5 MG/2.5 ML NEB SOLUTION NEB SCH ×2 (08:25→11:41)
[2016-08-21] MEDS ORDERED: AMIODARONE HCL 200 MG TABLET PO SCH (09:00)
[2016-08-21] MEDS ORDERED: FUROSEMIDE 20 MG TABLET PO SCH (09:00)
[2016-08-21 09:43] LABS: RBC MORPHOLOGY COMMENT ABNORMAL RBC MORPH
[2016-08-21 10:51] LABS: GLUCOSE COMMENT 1 Received Meds; GLUCOSE,POINT OF CARE 279 MG/DL (70-110)
[2016-08-21 10:52] VITALS: BP 137/75
[2016-08-21 11:18] LABS: GLUCOSE,POINT OF CARE 252 MG/DL (70-110)
[2016-08-21 11:18] LABS: GLUCOSE,POINT OF CARE 145 MG/DL (70-110)
[2016-08-21 11:58] LABS: GLUCOSE COMMENT 1 Received Meds; GLUCOSE,POINT OF CARE 230 MG/DL (70-110)
[2016-08-21] MEDS: INSULIN ASPART 100 UNITS/ML SQ PRN (12:07)
[2016-08-21] MEDS ORDERED: ACET-2247 PO (14:53)
[2016-08-21] MEDS ORDERED: AMIO200T44 PO (14:54)
[2016-08-21] MEDS ORDERED: ASCO500 PO (14:55)
[2016-08-21] MEDS ORDERED: AMLO-511 PO (14:56)
[2016-08-21] MEDS ORDERED: ATOR40TA28 PO (14:56)
[2016-08-21] MEDS ORDERED: DSS100 PO (14:57)
[2016-08-21] MEDS ORDERED: DIAZ5 PO ×2 (14:57→15:12)
[2016-08-21] MEDS ORDERED: ENOX40DI9 SQ (14:58)
[2016-08-21] MEDS ORDERED: ERGO2000 PO (15:00)
[2016-08-21] MEDS ORDERED: FERR-89 PO (15:01)
[2016-08-21] MEDS ORDERED: FURO20 PO (15:01)
[2016-08-21] MEDS ORDERED: METO-325 PO (15:02)
[2016-08-21] MEDS ORDERED: IPRNEB NEB ×2 (15:02→15:16)
[2016-08-21] MEDS ORDERED: TIOT185 IH (15:03)
[2016-08-21] MEDS ORDERED: MIRALAX PO (15:03)
[2016-08-21] MEDS ORDERED: TRAM50TA4 PO (15:04)
[2016-08-21] MEDS ORDERED: PRED10 PO (15:07)
[2016-08-21] MEDS ORDERED: PRED20 PO (15:07)
[2016-08-21] MEDS ORDERED: PRED5 PO (15:07)
[2016-08-21] MEDS ORDERED: SENN-30 PO (15:09)
[2016-08-21] MEDS ORDERED: RANI150T7 PO (15:09)
[2016-08-21] MEDS ORDERED: DOCU283E PR (15:13)
[2016-08-21] MEDS ORDERED: INSNOV SQ (15:15)
[2016-08-21] MEDS ORDERED: LEVA0.6319 IH (15:17)
[2016-08-21] MEDS ORDERED: OXYC10IR PO (15:18)
[2016-08-21] MEDS ORDERED: OXYC5 PO (15:18)
[2016-08-21] MEDS ORDERED: TEMA15CA PO (15:19)
[2016-08-21] MEDS ORDERED: LEVO250 PO (15:20)
[2016-08-21 15:41] VITALS: BP 132/81
[2016-08-25] MEDS ORDERED: METF500T4 PO (04:15)
== END 2016-08-21 16:20 | DRG 193 ==
LOC: 5N 19:30 → 5S 08-15 06:05 → 5N 08-15 17:09
PROVIDERS: ADMIT Hospitalist; ATTEND Hospitalist
DX: J18.9 Pneumonia, unspecified organism (principal); J96.01 Acute respiratory failure with hypoxia; G93.40 Encephalopathy, unspecified; E87.2 Acidosis; J44.1 Chronic obstructive pulmonary disease with (acute) exacerbation; I50.1 Left ventricular failure, unspecified; I13.0 Hypertensive heart and chronic kidney disease with heart failure and stage 1 through stage 4 chronic kidney disease, or unspecified chronic kidney disease; I47.2 Ventricular tachycardia; J44.0 Chronic obstructive pulmonary disease with (acute) lower respiratory infection; G47.33 Obstructive sleep apnea (adult) (pediatric); N18.9 Chronic kidney disease, unspecified; D64.9 Anemia, unspecified; I50.9 Heart failure, unspecified; I49.3 Ventricular premature depolarization; E87.6 Hypokalemia; I27.2 Other secondary pulmonary hypertension; R91.1 Solitary pulmonary nodule; Z93.0 Tracheostomy status; Z98.1 Arthrodesis status
CPT/HCPCS: 71250; 82805; 82962; 83735; 84100; 84145; 86480; 86635; 87015; 87449; 87899; 93005; 93306; 94640; 94660; 97112; 97162; 97166; 97530; 97535; J1650; J1940; J2543; J2920; J2930; J7050; J7060

== ENCOUNTER → 2016-11-24 | Outpatient (CLI) | payer OTHER ==
[~2016-11-24] MED LIST: ACET-2247 PO; AMIO200T44 PO; AMLO-511 PO; ASCO500 PO; ATOR40TA28 PO; DIAZ5 PO; ERGO2000 PO; FERR-89 PO; FURO20 PO; MAGOX PO; METO50TA12 PO; RANI150T7 PO; TIOT185 IH; TRAM50TA4 PO
== END | disposition home or self-care (01) ==
LOC: RADPV 09:22
PROVIDERS: ATTEND Internal Medicine Geriatric Medicine
DX: R13.10 Dysphagia, unspecified (principal)
CPT/HCPCS: 74230; 92611